=== PATIENT | female | born 1980 | race Caucasian/White ===

== ENCOUNTER 2017-09-01 11:00 | Observation (INO) | payer OTHER ==
[~2017-09-01] VITALS: Ht 160 cm; Wt 118.6 kg
[~2017-09-01 11:00] MED LIST: ACET-1600 PO; DOCU-131 PO; IBUP-1222 PO; LABE100T3 PO; NIFE60TA2 PO; OXYC-302 PO; PREN1TAB60 PO; SERT100T PO
[2017-09-01] MEDS ORDERED: LABE100T3 PO (11:24)
[2017-09-01] MEDS ORDERED: NIFE90TA PO (11:24)
[2017-09-01 11:25] VITALS: BP 138/81
[2017-09-01 11:40] LABS: MICROSCOPIC INDICATED
[2017-09-01] MEDS ORDERED: ONDANSETRON 2MG/ML, 2ML ONE (11:57)
[2017-09-01] MEDS ORDERED: D5%-LACTATED RINGERS 1,000 ML IV SCH ×2 (12:00→13:45)
[2017-09-01] MEDS ORDERED: ONDANSETRON 2MG/ML, 2ML IVPush PRN (12:00)
[2017-09-01] MEDS ORDERED: LACTATED RINGERS 1,000 ML IV SCH (12:00)
[2017-09-01 12:41] LABS: ALANINE AMINOTRANSFERASE 21 U/L (12-78); ALBUMIN 2.6 g/dL (3.4-5.0); ANION GAP 9 mmol/L (5-15); CALCIUM 8.3 mg/dL (8.5-10.1); CHLORIDE 107 mmol/L (98-107); CREATININE 0.71 mg/dL (0.55-1.02)
[2017-09-01 12:43] LABS: ALKALINE PHOSPHATASE 120 U/L (45-117); BILIRUBIN,TOTAL 0.3 mg/dL (0.2-1.0); TOTAL PROTEIN 7.4 g/dL (6.4-8.2)
[2017-09-01] MEDS ORDERED: ONDA8TAB12 PO (14:14)
== END 2017-09-01 14:32 | disposition home or self-care (01) ==
LOC: LDOP 11:00 → ORIP 12:34
PROVIDERS: ADMIT Obstetrics & Gynecology Maternal & Fetal Medicine; ATTEND Obstetrics & Gynecology Maternal & Fetal Medicine
DX: O99.612 Diseases of the digestive system complicating pregnancy, second trimester (principal); K92.9 Disease of digestive system, unspecified; O98.512 Other viral diseases complicating pregnancy, second trimester; A08.4 Viral intestinal infection, unspecified; O99.281 Endocrine, nutritional and metabolic diseases complicating pregnancy, first trimester; E86.0 Dehydration; O09.522 Supervision of elderly multigravida, second trimester; Z3A.23 23 weeks gestation of pregnancy
CPT/HCPCS: 36415; 59025; 80053; 81001; 87086; 96361; 96374; G0378; J2405; 96360; J7121

== ENCOUNTER 2017-11-30 18:15 | Outpatient (CLI) | payer OTHER ==
[~2017-11-30] VITALS: Ht 160 cm; Wt 125.5 kg
[~2017-11-30 18:15] MED LIST changes: -LABE100T3 PO; +LABE100T6 PO; +NIFE90TA PO; +ONDA8TAB12 PO
[2017-11-30 19:41] LABS: ALANINE AMINOTRANSFERASE 17 U/L (12-78); ALBUMIN 2.2 g/dL (3.4-5.0); ANION GAP 8 mmol/L (5-15); CALCIUM 8.7 mg/dL (8.5-10.1); CHLORIDE 107 mmol/L (98-107)
[2017-11-30 19:43] LABS: ALKALINE PHOSPHATASE 126 U/L (45-117); BASOPHILS # (AUTO) 0.05 x10^3/uL (0-0.1); BASOPHILS % (AUTO) 0 % (0-1); BILIRUBIN,TOTAL 0.2 mg/dL (0.2-1.0); EOSINOPHILS # (AUTO) 0.07 x10^3/uL (0-0.4); EOSINOPHILS % (AUTO) 1 % (1-7); LYMPHOCYTES # (AUTO) 2.57 x10^3/uL (1-3.4); LYMPHOCYTES % (AUTO) 20 % (22-44); MD NO; MEAN CORPUSCULAR HEMOGLOBIN 28.1 pg (27.0-34.8); MEAN CORPUSCULAR HGB CONC 33.6 g/dL (32.4-35.8); MEAN CORPUSCULAR VOLUME 83.5 fL (80-100); MEAN PLATELET VOLUME 8.7 fL (7.4-10.4); MONOCYTES # (AUTO) 0.74 x10^3/uL (0.2-0.8); MONOCYTES % (AUTO) 6 % (2-9); NEUTROPHILS # (AUTO) 9.48 x10^3/uL (1.8-6.8); NEUTROPHILS % (AUTO) 73 % (42-75); PLATELET COUNT 278 x10^3/uL (130-400); RED BLOOD COUNT 4.18 x10^6/uL (3.82-5.3); RED CELL DISTRIBUTION WIDTH 15.9 % (9.6-15.2); TOTAL PROTEIN 6.6 g/dL (6.4-8.2)
[2017-11-30 20:06] LABS: MICROSCOPIC NOT IND
[2017-11-30] MEDS ORDERED: LABETALOL 200 MG TABLET PO ONE (21:00)
[2017-11-30] MEDS ORDERED: LABETALOL 200 MG TABLET ONE (21:01)
[2017-12-04] MEDS ORDERED: OXYC-302 PO (09:40)
[2017-12-04] MEDS ORDERED: IBUP-1222 PO (09:41)
== END 2017-11-30 22:03 | disposition home or self-care (01) ==
LOC: LDOP 18:15
PROVIDERS: ATTEND Obstetrics & Gynecology Maternal & Fetal Medicine
DX: O13.3 Gestational [pregnancy-induced] hypertension without significant proteinuria, third trimester (principal); O14.93 Unspecified pre-eclampsia, third trimester; Z3A.37 37 weeks gestation of pregnancy
CPT/HCPCS: 36415; 59025; 80053; 81003; 82570; 84156; 84550; 85025; 99211; G0463

== ENCOUNTER → 2017-12-07 | Outpatient (CLI) | payer OTHER | END | disposition home or self-care (01) | LOC: RAD 15:59 | PROVIDERS: ATTEND Family Medicine | DX: M79.604 Pain in right leg (principal); R60.0 Localized edema ==